=== PATIENT | female | born 1940 | race Caucasian/White ===

== ENCOUNTER → 2017-10-24 | Outpatient (CLI) | payer MEDICARE ==
[~2017-10-24] MED LIST: CIPR-245 PO; INSU100C6 SQ; INSU100V12 SQ; LEVO25TA54 PO; LIRA0.6P2 SQ; MELO-106 PO
== END | disposition home or self-care (01) ==
LOC: RAH 09:32
PROVIDERS: ATTEND Physical Medicine & Rehabilitation
DX: M51.36 Other intervertebral disc degeneration, lumbar region (principal); M41.84 Other forms of scoliosis, thoracic region; M81.0 Age-related osteoporosis without current pathological fracture; M85.88 Other specified disorders of bone density and structure, other site
CPT/HCPCS: 72070; 72100

== ENCOUNTER → 2018-06-20 | Outpatient (CLI) | payer MEDICARE | END | disposition home or self-care (01) | LOC: RAH 10:33 | PROVIDERS: ATTEND Physical Medicine & Rehabilitation | DX: S80.02XA Contusion of left knee, initial encounter (principal); M25.462 Effusion, left knee; X58.XXXA Exposure to other specified factors, initial encounter; Y93.89 Activity, other specified; Y92.89 Other specified places as the place of occurrence of the external cause; Y99.8 Other external cause status | CPT/HCPCS: 73721 ==

== ENCOUNTER 2018-06-28 06:16 | Day surgery (SDC) | payer MEDICARE ==
[2018-06-27 15:54] LABS: BASOPHILS % (AUTO) 1.3 % (0.0-5.0); EOSINOPHILS % (AUTO) 3.7 % (0.0-8.0); HEMATOCRIT 37.6 % (36-48); LYMPHOCYTES % (AUTO) 16.1 % (21.0-51.0); MEAN CORPUSCULAR HGB CONC 32.8 g/dL (32.0-36.0); MEAN CORPUSCULAR VOLUME 94.3 fL (79-99); MONOCYTES % (AUTO) 4.7 % (3.0-13.0); NEUTROPHILS % (AUTO) 74.2 % (40.0-77.0); PLATELET COUNT (AUTO) 347 K/uL (130-400); RED BLOOD CELL COUNT(AUTO) 3.99 MIL/uL (4.00-5.50); RED CELL DISTRIBUTION WIDTH 14.3 % (11.0-15.5); WHITE BLOOD COUNT (AUTO) 11.4 K/uL (4.8-10.8)
[2018-06-27 15:58] VITALS: BP 114/49
[2018-06-27 16:05] LABS: CREATININE 0.9 mg/dL (0.5-1.5); POTASSIUM 3.6 mmol/L (3.5-5.1)
--- NOTE | 2018-06-27 17:20 | NUR ---
WBC INFORMED DR. ABBOTT OF ABNORMAL WBC. NO ORDERS RECEIVED. PROCEED WITH PLANNED PROCEDURE.
[2018-06-28] VITALS (21 sets, daily range): BP systolic 103–182; BP diastolic 51–88
[~2018-06-28] VITALS: Ht 166.4 cm; Wt 63.9 kg
[~2018-06-28 06:16] MED LIST changes: +CEFAZOLIN SODIUM 1 GM VIAL IVP SCH; -CIPR-245 PO; -INSU100C6 SQ; -MELO-106 PO
[2018-06-28] MEDS ORDERED: SODIUM CHLORIDE 0.9% 1000ML 1,000 ML IV ONE (08:08)
[2018-06-28] MEDS ORDERED: CEFAZOLIN SODIUM 1 GM VIAL ONE (08:28)
[2018-06-28] MEDS ORDERED: DEXAMETHASONE SOD PHOSPHATE 10MG/ML 1ML VIAL ONE (10:11)
[2018-06-28] MEDS ORDERED: ONDANSETRON HCL 4 MG/2 ML VIAL ONE (10:11)
[2018-06-28] MEDS ORDERED: PROPOFOL 10 MG/ML 20ML VIAL IV ONE (10:11)
[2018-06-28] MEDS ORDERED: NEOSTIGMINE 5MG/5ML SYR IV ONE (10:11)
[2018-06-28] MEDS ORDERED: LIDOCAINE PF 2% 5ML ABBOJECT ONE (10:11)
[2018-06-28] MEDS ORDERED: SUCCINYLCHOLINE 200MG/10ML SYR ONE (10:11)
[2018-06-28] MEDS ORDERED: GLYCOPYRROLATE 1 MG/5 ML SYRINGE ONE (10:11)
[2018-06-28] MEDS ORDERED: ROCURONIUM 10MG/1ML SYR 10 MG/ML ML ONE (10:12)
[2018-06-28] MEDS ORDERED: MIDAZOLAM HCL 1 MG/ML 2ML VIAL ONE (10:12)
[2018-06-28] MEDS ORDERED: FENTANYL CITRATE PF 50 MCG/1 ML 2ML VIAL ONE ×2 (10:13→13:04)
[2018-06-28] MEDS ORDERED: PHENYLEPHRINE HCL 10 MG/ML 1ML VIAL IV ONE (10:47)
[2018-06-28] MEDS ORDERED: SODIUM CHLORIDE 0.9% 10 ML VIAL ONE (10:47)
[2018-06-28] MEDS ORDERED: CEPH500B PO (12:19)
[2018-06-28] MEDS ORDERED: TYL3 PO (12:19)
[2018-06-28] MEDS ORDERED: MEPERIDINE-PF 25 MG/ML SYG ONE ×2 (12:43→12:52)
[2018-06-28] MEDS ORDERED: INSULIN HUMULIN R 100 UNIT/ML 3ML ONE (13:11)
--- NOTE | 2018-06-28 14:10 | NUR ---
SX RECEIVED PT FROM PACU, S/P ORIF RIGHT ELBOW , SPLINT TO RIGHT ARM DRY AND INTACT WITH ARM SLING IN PLACE ELEVATED TO HEART LEVEL. NEUROVASCULAR CHECKS TO RIGHT HAND WNL. PT ABLE TO MOVE WIGGLE FINGERS. VS STABLE ON ARRIVAL WILL CONTINUE TO MONITOR
--- NOTE | 2018-06-28 15:00 | NUR ---
DC DC INSTRUCTIONS GIVEN TO PT / PTS EDI HUGHES WITH RX, INSTRUCTED TO F/U WITH DR. Humaira ABBOTT AND TO KEEP SPLINT DRY AND INTACT AT ALL TIMES. ALL DC INSTRUCTIONS REVIEWED IN DETALIED WITH PTS EDI HUGHES. IVF STOP AT THIS TIME. PIV WAS ALREADY REMOVED PT GETTING DRESS WITH ASSITANCE OF NURSE AID, PT STATES PAIN TO RIGHT ARM PAIN LEVEL OF 3, INSTRUCTED ON NEW MED REGIMEN, AND POSSIBLE SIDE EFFECTS OF NEW MEDS. VERBALIZED UNDERSTANDING. INSTRUCTED PATIENT TO COUGH AND DEEP BREATH ALSO .
--- NOTE | 2018-06-28 15:10 | NUR ---
DC PT DC HOME VIA W/C , NO DISTRESS NOTED. DENIED ANY PAIN OR DISCOMFORTS. PT SUGAR PRIOR TO DC WAS 202, ACCOMPANIED BY SAUL HER FRIEND THAT LIVES WITH HER.
== END 2018-06-28 15:10 | disposition home or self-care (01) ==
LOC: DAH 06:16
PROVIDERS: ATTEND Orthopaedic Surgery
DX: S52.031A Displaced fracture of olecranon process with intraarticular extension of right ulna, initial encounter for closed fracture (principal); W19.XXXA Unspecified fall, initial encounter; Y93.9 Activity, unspecified; Y92.89 Other specified places as the place of occurrence of the external cause; Y99.9 Unspecified external cause status; E11.9 Type 2 diabetes mellitus without complications; I10 Essential (primary) hypertension; G56.30 Lesion of radial nerve, unspecified upper limb; Z79.899 Other long term (current) drug therapy; Z79.01 Long term (current) use of anticoagulants; Z98.890 Other specified postprocedural states; Z88.8 Allergy status to other drugs, medicaments and biological substances
CPT/HCPCS: 24685; 36415; 76000; 80048; 82948 ×5; 85025; A4218; A4565; A4649; A4930; A6223; C1713 ×2; J0330; J0690 ×2; J1100; J1815; J2001; J2175 ×2; J2250; J2370; J2405; J2704; J2710; J3010 ×2; J3490; J7030; Q4051

== ENCOUNTER 2018-12-23 20:38 | Inpatient (IN) | payer MEDICARE ==
[~2018-12-23] VITALS: Ht 165.1 cm; Wt 65.0 kg
[~2018-12-23 20:38] MED LIST changes: -CEFAZOLIN SODIUM 1 GM VIAL IVP SCH; +CEPH500B PO; +TYL3 PO
[2018-12-23] MEDS ORDERED: SODIUM CHLORIDE 0.9% 100 ML IV ONE (21:24)
[2018-12-23] MEDS ORDERED: DIGOXIN 250 MCG/ML 2ML AMP ONE (22:26)
[2018-12-23] MEDS ORDERED: SODIUM CHLORIDE 0.9% 50 ML IV ONE (22:27)
[2018-12-23 23:14] LABS: BASOPHILS % (AUTO) 2.1 % (0.0-5.0); EOSINOPHILS % (AUTO) 0.8 % (0.0-8.0); HEMATOCRIT 37.2 % (36-48); LYMPHOCYTES % (AUTO) 20.2 % (21.0-51.0); MEAN CORPUSCULAR HGB CONC 33.2 g/dL (32.0-36.0); MEAN CORPUSCULAR VOLUME 93.4 fL (79-99); MONOCYTES % (AUTO) 8.5 % (3.0-13.0); NEUTROPHILS % (AUTO) 68.4 % (40.0-77.0); PLATELET COUNT (AUTO) 262 K/uL (130-400); RED BLOOD CELL COUNT(AUTO) 3.98 MIL/uL (4.00-5.50); RED CELL DISTRIBUTION WIDTH 14.4 % (11.0-15.5)
[2018-12-23 23:27] LABS: INR 0.89 (0.85-1.15); PARTIAL THROMBOPLASTIN TIME 28.7 SEC (26.3-35.5); PROTHROMBIN TIME 9.4 SEC (9.6-11.6)
[2018-12-23 23:31] LABS: ALBUMIN 2.8 g/dL (3.5-5.0); BILIRUBIN,TOTAL 0.1 mg/dL (0.2-1.0); CREATININE 0.6 mg/dL (0.5-1.5); POTASSIUM 3.3 mmol/L (3.5-5.1); TOTAL PROTEIN, SERUM 5.6 g/dL (6.0-8.3)
[2018-12-23 23:46] LABS: B-TYPE NATRIURETIC PEPTIDE 67 pg/mL (0-100)
[2018-12-23] MEDS ORDERED: IPRATROPIUM/ALBUTEROL SULFATE 3 ML SOLUTION IH ONE (23:58)
[2018-12-24] VITALS (7 sets, daily range): BP systolic 114–139; BP diastolic 56–74
[2018-12-24] MEDS ORDERED: SODIUM CHLORIDE 0.9% 1000ML 1,000 ML IV ONE (00:22)
[2018-12-24] MEDS ORDERED: LEVOFLOXACIN 500 MG TABLET ONE (00:24)
[2018-12-24] MEDS ORDERED: ASPIRIN 325 MG TABLET ONE (00:24)
[2018-12-24] MEDS ORDERED: ENOXAPARIN SODIUM 60 MG/0.6 ML SQ ONE (00:24)
[2018-12-24] MEDS ORDERED: SODIUM CHLORIDE 0.9% 1000ML 1,000 ML IV SCH (01:07)
[2018-12-24] MEDS ORDERED: ONDANSETRON HCL 4 MG/2 ML VIAL IV PRN (01:15)
[2018-12-24] MEDS ORDERED: POTASSIUM CHLORIDE 20 MEQ ERTAB PO PRN (01:15)
[2018-12-24] MEDS ORDERED: POTASSIUM CHLORIDE 10% ELIXIR 20 MEQ/15 ML UDCUP PO PRN (01:15)
[2018-12-24] MEDS ORDERED: LIDOCAINE HCL-MPF 1% 2ML VIAL IVP PRN (01:15)
[2018-12-24] MEDS ORDERED: DILTIAZEM 125MG+100 ML NS 125 ML IV PRN (01:15)
[2018-12-24] MEDS ORDERED: ACETAMINOPHEN 325 MG TAB PO PRN (01:15)
[2018-12-24] MEDS ORDERED: MORPHINE SULFATE 2 MG/ML 1ML SYG IV PRN (01:15)
[2018-12-24] MEDS ORDERED: POTASSIUM CHLORIDE 10MEQ/100ML 100 ML IV PRN (01:15)
[2018-12-24] MEDS ORDERED: CEFTRIAXONE SODIUM 1 GM ONE (01:53)
[2018-12-24] MEDS ORDERED: METHYLPREDNISOLONE SOD SUCC 40MG/ML 1ML ONE (01:53)
[2018-12-24] MEDS ORDERED: AZITHROMYCIN 500MG+NS 250ML 250 ML IV ONE (01:53)
[2018-12-24 01:54] LABS: HEMOGLOBIN A1C 8.4 % (4.0-6.0)
[2018-12-24] MEDS ORDERED: CEFTRIAXONE SODIUM 2 GM VIAL IVP SCH (02:00)
[2018-12-24 02:02] LABS: HDL CHOLESTEROL 115 mg/dL (35-85); LDL DIRECT 73 mg/dL (0-99); TRIGLYCERIDES 99 mg/dL (30-200)
[2018-12-24 02:17] LABS: CHOLESTEROL 142 mg/dL (<200)
[2018-12-24] MEDS: AZITHROMYCIN 500MG+NS 250ML 250 ML IV SCH (02:27)
[2018-12-24 03:52] LABS: TROPONIN I 1.83 ng/mL (0.00-0.06)
[2018-12-24] MEDS ORDERED: SODIUM CHLORIDE 3% FOR INHALATION 4 ML/AMP VIAL.NEB IH ONE ×3 (04:07→11:22)
[2018-12-24] MEDS ORDERED: INSULIN HUMULIN R 100 UNIT/ML 3ML ONE (05:56)
[2018-12-24] MEDS: INSULIN HUMULIN R 100 UNIT/ML 3ML SQ SCH ×2 (06:03→11:47)
[2018-12-24] MEDS: IPRATROPIUM 0.5 MG/2.5 ML INH IH SCH ×4 (07:24→23:19)
--- NOTE | 2018-12-24 07:50 | NUR ---
ASSESSMENT ENCOUNTERED PT A&OX3, CALM COOPERATIVE AND DOES NOT APPEAR TO BE IN ANY DISTRESS NOR ANY NEURO DEFICITS PRESENT. PT DENIES PAIN, SOB, NAUSEA BUT DOES C/O DYSPNEA ON EXERTION AND COUGH. PT IS ABLE TO TOLERATE FOODS, FLUIDS AND MEDICATION WITH NO THROAT CLEARING OR COUGH. PT ON BEDREST UNTIL SEEN BY DR NELSON. CALL LIGHT WITHIN REACH.
[2018-12-24] MEDS: ASPIRIN 81MG TAB.CHEW PO SCH (08:44)
[2018-12-24] MEDS: FAMOTIDINE 20MG TAB 20 MG TAB PO SCH ×2 (08:44→21:09)
[2018-12-24] MEDS: METOPROLOL TARTRATE 25 MG TAB PO SCH ×2 (08:44→21:10)
[2018-12-24] MEDS: CEFTRIAXONE SODIUM 1 GM IVP SCH (08:45)
[2018-12-24] MEDS: ENOXAPARIN SODIUM 60 MG/0.6 ML SQ SCH ×2 (08:45→21:10)
[2018-12-24] MEDS ORDERED: ENOXAPARIN SODIUM 40 MG/0.4 ML SYRINGE SQ SCH (09:00)
[2018-12-24] MEDS ORDERED: METHYLPREDNISOLONE SOD SUCC 40MG/ML 1ML IVP SCH ×2 (09:00→22:00)
[2018-12-24] MEDS ORDERED: ASPIRIN 325 MG TABLET PO SCH (09:00)
[2018-12-24] MEDS ORDERED: INSU100I21 SQ (09:18)
[2018-12-24] MEDS ORDERED: MELO-106 PO (09:18)
[2018-12-24] MEDS ORDERED: INSU100V12 SQ (09:18)
[2018-12-24] MEDS ORDERED: LEVO100T12 PO (09:18)
[2018-12-24] MEDS ORDERED: CHOL500045 PO (09:18)
[2018-12-24] MEDS ORDERED: ASPI-555 PO (09:18)
[2018-12-24 11:52] LABS: TROPONIN I 1.51 ng/mL (0.00-0.06)
--- NOTE | 2018-12-24 13:41 | NUR ---
DC PLAN VISITED WITH PATIENT. PATIENT LIVES WITH FRIEND. PATIENT HAS NO SERVICES OR DME'S. INDEPENDENT ABLE TO PERFORM ADL'S. FEELS SAFE TO RETURN HOME. Addendum: 12/24/18 at 1342 by SHA COOPER RN CM Amended: Links added.
[2018-12-24] MEDS ORDERED: INSULIN LISPRO 100 UNIT/ML 3ML SQ SCH (16:30)
[2018-12-24] MEDS: INSULIN LISPRO 100 UNIT/ML 3ML SQ SCH ×2 (16:41→21:29)
[2018-12-24 17:35] LABS: TROPONIN I 1.12 ng/mL (0.00-0.06)
[2018-12-24] MEDS ORDERED: PREDNISONE 1 MG TAB PO SCH (19:00)
[2018-12-24] MEDS ORDERED: INSULIN GLARGINE 100 UNITS/ML 10 ML VIAL SQ SCH (21:00)
[2018-12-25] MEDS: AZITHROMYCIN 500MG+NS 250ML 250 ML IV SCH (02:10)
[2018-12-25 03:38] VITALS: BP 123/73
[2018-12-25] MEDS: INSULIN LISPRO 100 UNIT/ML 3ML SQ SCH ×4 (06:22→11:42)
[2018-12-25] MEDS: IPRATROPIUM 0.5 MG/2.5 ML INH IH SCH ×2 (06:59→11:27)
[2018-12-25 07:27] VITALS: BP 136/81
[2018-12-25] MEDS: METOPROLOL TARTRATE 25 MG TAB PO SCH (07:36)
[2018-12-25] MEDS: ASPIRIN 81MG TAB.CHEW PO SCH (07:36)
[2018-12-25] MEDS: FAMOTIDINE 20MG TAB 20 MG TAB PO SCH (07:36)
[2018-12-25] MEDS: ENOXAPARIN SODIUM 60 MG/0.6 ML SQ SCH (07:37)
[2018-12-25] MEDS: CEFTRIAXONE SODIUM 1 GM IVP SCH (07:37)
--- NOTE | 2018-12-25 08:20 | NUR ---
ASSESSMENT PT IS AAOX4 DENIES CP DENIES SOB DENIES NV SITTING UPRIGHT IN BED, AM MEDS GIVEN. DR JAVED ROUNDED, ORDERS RECEIVED. CALL LIGHT WITHIN REACH.
--- NOTE | 2018-12-25 08:45 | NUR ---
ASSISTED UP TO CHAIR CALL LIGHT WITHIN REACH.
[2018-12-25] MEDS ORDERED: ATORVASTATIN CALCIUM 40 MG TABLET PO SCH (09:00)
[2018-12-25] MEDS ORDERED: APIXABAN 5 MG TABLET PO SCH (09:00)
[2018-12-25] MEDS ORDERED: PREDNISONE 20 MG TABLET PO SCH (09:00)
[2018-12-25] MEDS ORDERED: GUAIFENESIN-CODEINE 5 ML SYRUP PO PRN (09:45)
[2018-12-25 11:54] VITALS: BP 143/77
[2018-12-25] MEDS ORDERED: AMOXICILLIN/POTASSIUM CLAV 875-125 TABLET PO SCH (13:30)
[2018-12-25 14:01] LABS: BASOPHILS % (AUTO) 0.8 % (0.0-5.0); EOSINOPHILS % (AUTO) 0.4 % (0.0-8.0); HEMATOCRIT 34.7 % (36-48); LYMPHOCYTES % (AUTO) 15.1 % (21.0-51.0); MEAN CORPUSCULAR HGB CONC 32.9 g/dL (32.0-36.0); MONOCYTES % (AUTO) 5.9 % (3.0-13.0); NEUTROPHILS % (AUTO) 77.8 % (40.0-77.0); PLATELET COUNT (AUTO) 280 K/uL (130-400); RED BLOOD CELL COUNT(AUTO) 3.69 MIL/uL (4.00-5.50); RED CELL DISTRIBUTION WIDTH 14.5 % (11.0-15.5); WHITE BLOOD COUNT (AUTO) 10.8 K/uL (4.8-10.8)
[2018-12-25 14:09] LABS: CREATININE 0.6 mg/dL (0.5-1.5)
[2018-12-25] MEDS ORDERED: PRED20TA3 PO (15:17)
[2018-12-25] MEDS ORDERED: METO25 PO (15:17)
[2018-12-25] MEDS ORDERED: ATOR40TA69 PO (15:17)
[2018-12-25] MEDS ORDERED: AMOX1TAB16 PO (15:17)
[2018-12-25] MEDS ORDERED: APIX5TAB PO (15:17)
--- NOTE | 2018-12-25 15:45 | NUR ---
DR NELSON ROUNDED OK TO DC HOME TODAY
--- NOTE | 2018-12-25 16:09 | NUR ---
DISCHARGE PATIENT VERBALIZES DC INSTRUCTIONS UNDERSTANDING, AGREES TO TAKE MEDICATIONS ORDERED, AGREES TO FOLLOW UP WITH DR VANG AND DR JAVED ALL QUESTIONS ANSWERED, PIV REMOVED CATH TIP INTACT, TELE PACK REMOVED. AWAITING RIDE.
--- NOTE | 2018-12-25 16:18 | NUR ---
DOWN VIA WC TO RIDE WITH NURSE AIDE
== END 2018-12-25 17:01 | disposition home or self-care (01) | DRG 308 ==
LOC: EDH 20:38 → EDHIP 12-24 01:07 → 2DH 12-24 02:35
PROVIDERS: ADMIT Internal Medicine; ATTEND Internal Medicine
DX: I48.0 Paroxysmal atrial fibrillation (principal); E43 Unspecified severe protein-calorie malnutrition; J44.1 Chronic obstructive pulmonary disease with (acute) exacerbation; J44.0 Chronic obstructive pulmonary disease with (acute) lower respiratory infection; D68.59 Other primary thrombophilia; R79.89 Other specified abnormal findings of blood chemistry; G56.30 Lesion of radial nerve, unspecified upper limb; E03.9 Hypothyroidism, unspecified; E11.9 Type 2 diabetes mellitus without complications; E87.6 Hypokalemia; F17.210 Nicotine dependence, cigarettes, uncomplicated; Z96.642 Presence of left artificial hip joint; I10 Essential (primary) hypertension; J20.9 Acute bronchitis, unspecified; Z90.49 Acquired absence of other specified parts of digestive tract; Z90.710 Acquired absence of both cervix and uterus; Z91.14 Patient's other noncompliance with medication regimen; Z98.82 Breast implant status; Z68.23 Body mass index [BMI] 23.0-23.9, adult
CPT/HCPCS: 36415; 71045; 80048; 80053; 80061; 82550; 82947; 82948; 83036; 83874; 83880; 84443; 84484; 85025; 85610; 85730; 87040; 87071; 87205; 87804; 93005; 93306; 94640; 94664; 99291; G0378; J0456; J0696; J1160; J1650; J1815; J2920; J7030; J7512

== ENCOUNTER → 2019-12-22 | Outpatient (CLI) | payer MEDICARE | END | disposition home or self-care (01) | LOC: RAH 15:28 | PROVIDERS: ATTEND Family Medicine Sports Medicine | DX: M79.661 Pain in right lower leg (principal) ==

== ENCOUNTER → 2019-12-26 | Outpatient (CLI) | payer MEDICARE ==
[~2019-12-26] MED LIST changes: +APIX5TAB PO; +ASPI-556 PO; +ATEN50TA PO; +ATOR40TA69 PO; -CEPH500B PO; +CHOL500045 PO; +INSU100I21 SQ; +LEVO100T12 PO; -LEVO25TA54 PO; +LINA145C PO; +MONT10TA26 PO; -TYL3 PO
== END | disposition home or self-care (01) ==
LOC: RAH 07:19
PROVIDERS: ATTEND Orthopaedic Surgery
DX: M23.91 Unspecified internal derangement of right knee (principal)
CPT/HCPCS: 73721

== ENCOUNTER 2020-03-15 06:17 | Day surgery (SDC) | payer MEDICARE ==
[2020-03-08 10:12] LABS: EOSINOPHILS % (AUTO) 4.3 % (0.0-8.0); HEMATOCRIT 39.4 % (36-48); LYMPHOCYTES % (AUTO) 21.7 % (21.0-51.0); MEAN CORPUSCULAR HEMOGLOBIN 29.9 pg (27.0-33.0); MEAN CORPUSCULAR HGB CONC 32.5 g/dL (32.0-36.0); MEAN CORPUSCULAR VOLUME 92.1 fL (79-99); MONOCYTES % (AUTO) 5.8 % (3.0-13.0); NEUTROPHILS % (AUTO) 66.7 % (40.0-77.0); PLATELET COUNT (AUTO) 269 K/uL (130-400); RED BLOOD CELL COUNT(AUTO) 4.28 MIL/uL (4.00-5.50); RED CELL DISTRIBUTION WIDTH 14.1 % (11.0-15.5); WHITE BLOOD COUNT (AUTO) 8.2 K/uL (4.8-10.8)
[2020-03-08 10:20] LABS: CREATININE 0.6 mg/dL (0.5-1.5); POTASSIUM 4.5 mmol/L (3.5-5.1)
[2020-03-08 14:49] VITALS: BP 156/80
[~2020-03-15] VITALS: Ht 162.6 cm; Wt 61.1 kg
[2020-03-15] VITALS (16 sets, daily range): BP systolic 125–161; BP diastolic 57–93
[~2020-03-15 06:17] MED LIST changes: -APIX5TAB PO; +ATEN25TA PO; -ATEN50TA PO; -ATOR40TA69 PO; +BUDE10.2 IH; +CEFAZOLIN SODIUM 1 GM VIAL IVP SCH; -CHOL500045 PO; +FURO20TA4 PO; +NAPR220T57 PO; +VITAMIN D3 PO
[2020-03-15] MEDS ORDERED: DEXAMETHASONE SOD PHOSPHATE 10MG/ML 1ML VIAL ONE ×2 (07:03→07:06)
[2020-03-15] MEDS ORDERED: SUCCINYLCHOLINE 200MG/10ML SYR ONE (07:03)
[2020-03-15] MEDS ORDERED: LIDOCAINE PF 2% 5ML ABBOJECT ONE (07:03)
[2020-03-15] MEDS ORDERED: PROPOFOL 10 MG/ML 20ML VIAL IV ONE (07:04)
[2020-03-15] MEDS ORDERED: ONDANSETRON HCL 4 MG/2 ML VIAL ONE (07:04)
[2020-03-15] MEDS ORDERED: MIDAZOLAM HCL 1 MG/ML 2ML VIAL ONE (07:04)
[2020-03-15] MEDS ORDERED: NEOSTIGMINE 5MG/5ML SYR IV ONE (07:04)
[2020-03-15] MEDS ORDERED: ROCURONIUM 10MG/1ML SYR 10 MG/ML ML ONE (07:04)
[2020-03-15] MEDS ORDERED: GLYCOPYRROLATE 1 MG/5 ML SYRINGE ONE (07:04)
[2020-03-15] MEDS ORDERED: FENTANYL CITRATE PF 50 MCG/1 ML 2ML VIAL ONE (07:05)
[2020-03-15] MEDS ORDERED: SODIUM CHLORIDE 0.9% 1000ML 1,000 ML IV ONE (07:38)
[2020-03-15] MEDS ORDERED: CEPH500B PO (09:23)
[2020-03-15] MEDS ORDERED: ACET1TAB25 PO (09:23)
[2020-03-15] MEDS ORDERED: KETOROLAC TROMETHAMINE 15MG/ML ONE (09:37)
[2020-03-15] MEDS ORDERED: MEPERIDINE-PF 25 MG/ML SYG ONE (09:38)
--- NOTE | 2020-03-15 10:05 | NUR ---
DAY PT ARRIVAL PT ARRIVED FROM PACU BY NURSE BEE. PT IN NO APPARENT DISTRESS, DENIES DISCOMFORT. ORIENTED TO CALL LIGHT AND ROOM. SARI WRAP TO RIGHT KNEE IN PLACE.
--- NOTE | 2020-03-15 10:50 | NUR ---
DAY PT DC PT DENIES DISCOMFORT SITTING TA BEDSIDE. TAKEN TO FRONT OF ER IN A WHEELCHAIR. CAREGIVER AND PT VERBALIZE UNDERSTANDING OF DC INSTRUCTIONS
== END 2020-03-15 10:50 | disposition home or self-care (01) ==
LOC: DAH 06:17
PROVIDERS: ATTEND Orthopaedic Surgery
DX: S83.281A Other tear of lateral meniscus, current injury, right knee, initial encounter (principal); E11.9 Type 2 diabetes mellitus without complications; I10 Essential (primary) hypertension; E03.9 Hypothyroidism, unspecified; Z96.642 Presence of left artificial hip joint; Z98.82 Breast implant status; X58.XXXA Exposure to other specified factors, initial encounter; Y93.89 Activity, other specified; Y92.89 Other specified places as the place of occurrence of the external cause; Y99.8 Other external cause status; M22.41 Chondromalacia patellae, right knee; Z98.890 Other specified postprocedural states
CPT/HCPCS: 29881; 36415; 80048; 82948 ×2; 85025; A4215; A4216; A4221; A4222; A4223 ×3; A4606 ×2; A4649 ×2; A4663; A4930; A6223; C9803; J0330; J0690; J1100 ×2; J1885; J2001; J2175; J2250; J2405; J2704; J2710; J3010; J3490; J7030 ×2; U0003

== ENCOUNTER → 2021-11-02 | Outpatient (CLI) | payer MEDICARE ==
[~2021-11-02] MED LIST changes: +ACET-2079 PO; -CEFAZOLIN SODIUM 1 GM VIAL IVP SCH; +CEPH500B PO; +MONT-39 PO; -MONT10TA26 PO
== END | disposition home or self-care (01) ==
LOC: SHCH 14:56
PROVIDERS: ATTEND Internal Medicine Cardiovascular Disease
DX: I70.293 Other atherosclerosis of native arteries of extremities, bilateral legs (principal)
CPT/HCPCS: 93925

== ENCOUNTER → 2022-12-06 | Outpatient (CLI) | payer MEDICARE ==
[~2022-12-06] MED LIST changes: -INSU100I21 SQ; +INSU100I22 SQ
== END | disposition home or self-care (01) ==
LOC: LAB 11:16
PROVIDERS: ATTEND Internal Medicine Cardiovascular Disease
DX: I48.0 Paroxysmal atrial fibrillation (principal); E03.9 Hypothyroidism, unspecified
CPT/HCPCS: 36415; 84132

== ENCOUNTER 2023-05-30 05:43 | Day surgery (SDC) | payer MEDICARE ==
[~2023-05-30] VITALS: Ht 165.1 cm; Wt 59.0 kg
[2023-05-30] VITALS (11 sets, daily range): BP systolic 99–139; BP diastolic 51–65; PULSE 78–97; RESP 14–18
[~2023-05-30 05:43] MED LIST changes: -ACET-2079 PO; +ASPI-1197 PO; -ASPI-556 PO; -ATEN25TA PO; -BUDE10.2 IH; -CEPH500B PO; +CHOL2000 PO; +INSLAN SQ; -INSU100I22 SQ; -INSU100V12 SQ; -LEVO100T12 PO; +LEVO125C4 PO; -LINA145C PO; +LINA290C PO; -LIRA0.6P2 SQ; -MONT-39 PO; -NAPR220T57 PO; +ROSU5TAB12 PO; -VITAMIN D3 PO
[2023-05-30] MEDS ORDERED: 0.9%NACL 1000ML 1,000 ML IV ONE (06:14)
[2023-05-30] MEDS ORDERED: PROPOFOL 10 MG/ML 20ML VIAL IV ONE (07:12)
[2023-05-30] MEDS ORDERED: LIDOCAINE HCL 1% 20 ML VIAL ONE (07:12)
[2023-05-30] MEDS ORDERED: INSU100I43 SQ (07:25)
== END 2023-05-30 10:05 | disposition home or self-care (01) ==
LOC: DAH 05:43 → ENDO 05:43
PROVIDERS: ATTEND Internal Medicine Gastroenterology
DX: R19.4 Change in bowel habit (principal); K57.30 Diverticulosis of large intestine without perforation or abscess without bleeding; K64.1 Second degree hemorrhoids; I10 Essential (primary) hypertension; E78.2 Mixed hyperlipidemia; E11.9 Type 2 diabetes mellitus without complications; E03.2 Hypothyroidism due to medicaments and other exogenous substances; M81.0 Age-related osteoporosis without current pathological fracture; M19.90 Unspecified osteoarthritis, unspecified site; Z87.891 Personal history of nicotine dependence; Z83.79 Family history of other diseases of the digestive system; Z79.82 Long term (current) use of aspirin; Z79.4 Long term (current) use of insulin; Z79.899 Other long term (current) drug therapy; Z79.890 Hormone replacement therapy; Z90.710 Acquired absence of both cervix and uterus; Z98.890 Other specified postprocedural states
CPT/HCPCS: 45378; J7030 ×2; J2704; A4620; A4215 ×2; A4223; A7002; A4222; A4221; A4663; A4606; J3490

== ENCOUNTER → 2024-10-07 | Outpatient (CLI) | payer MEDICARE ==
[~2024-10-07] MED LIST changes: +INSU100I43 SQ; -LEVO125C4 PO; +LEVO125C5 PO; -ROSU5TAB12 PO; +ROSU5TAB51 PO
[2024-10-07] MEDS: REGADENOSON 0.4 MG/5 ML PF SYG IVP ONE (15:42)
--- NOTE | 2024-10-08 08:26 | HMCSR ---
APPROVED REPORT Height: 5 ft 5in Weight: 143 lbs TEST INDICATIONS CAD The imaging protocol used to acquire images was Rest Tc-99m/stress Tc-99m 1 day Consent: The procedure was explained and understood by the patient. Informerd consent was witnessed Bridger Mcnally RN First, low dose rest was performed then high dose stress. RESTING DATA: The resting ekg shows: NSR Rest SPECT myocardial perfusion imaging was performed in supine position 95 minutes following the int ravenous injection of 10.8 mCi of Tc-99 Sestamibi. Time of rest injection: 09:08: Date: 10/07/2024 Time of rest imagin:43: Date: 10/07/2024 PHARMACOLOGIC STRESS: Pharmacologic stress test was performed by injecting regadenoson 0.4 mg IV push followed by the intra venous injection of 29.6 mCi of Tc-99 Sestamibi. Time of stress injection: 11:37: Date: 10/07/2024 Time of stress imagin:36: Date: 10/07/2024 Heart Rate at time of stress injection: 86 bpm. Gated Stress SPECT was performed 57 minutes after stress injection. The images were gated to evaluate regional wall motion and calculate left ventricular ejection fracti on. STRESS DETAILS Reason for Termination: Infusion complete Stress Symptoms: Dyspnea Max HR Achieved: 92 bpm % of APMHR Achieved: 67 Max Blood Pressure: 135/76 mmHg Stress ECG: NSR Conclusion Mild apical ischemia No infarct LV ejection fraction 60% Normal LV wall motion Normal LV size at rest and stress No increased lung uptake
== END | disposition home or self-care (01) ==
LOC: SHCH 08:41
PROVIDERS: ATTEND Internal Medicine Cardiovascular Disease
DX: I25.9 Chronic ischemic heart disease, unspecified (principal); I25.10 Atherosclerotic heart disease of native coronary artery without angina pectoris; R06.00 Dyspnea, unspecified
CPT/HCPCS: 78452; 93017; J2785; A9500 ×2